=== PATIENT | male | born 1955 | race Caucasian/White ===

== ENCOUNTER 2021-02-24 18:04 | Inpatient (IN) | payer OTHER ==
[~2021-02-24] VITALS: Ht 175.3 cm; Wt 98.9 kg
--- NOTE | ~2021-02-24 | CON ---
[address] [address] CONSULTATION Name: ARACELIJOHNSON D Room: [address] M.R.#: [id number] Admission: 02/25/21 Attend Phys: Tricia Castellano Discharge: Date of : 53 Report #: [id number] THIS REPORT FOR: cc: KAT HOLLINGSWORTH MD, HEATHER L. MD Namin, Farid M. MD ~ cc: Bia Tejada MD DATE OF CONSULTATION: 02/26/2021 REASON FOR CONSULTATION: Chest pain and anemia. REQUESTING PHYSICIAN: Bia Tejada MD HISTORY OF PRESENT ILLNESS: This is a 65-year-old male with no previous history of endoscopic evaluation who presents with 6 weeks of weakness. The patient had COVID test on Sunday, which was positive. He also found to be anemic with hemoglobin of 8. He denies any hematochezia or melena. He has never had a colonoscopy or upper endoscopy. The patient also had some chest pain and elevated troponin. He was evaluated by Cardiology, and due to his cardiac murmur, he will get echocardiogram. He currently denies any hypoxia, nausea, vomiting, hematemesis, melena, hematochezia. He also denies any family history of colon cancer. PAST MEDICAL HISTORY: Significant for history of dyslipidemia, diabetes mellitus, history of tobaccoism, cardiac murmur, hypocalcemia and recently diagnosed anemia. ALLERGIES: No known drug allergy. MEDICATIONS: Please refer to MAR. SOCIAL HISTORY: The patient has a remote history of tobaccoism, but denies any tobacco use. FAMILY HISTORY: Negative for GI malignancy. LABORATORY DATA: Reveal sodium of 138, potassium 4.6, BUN is 16, creatinine 1.0, glucose is 432, calcium 7.8, bilirubin 0.3, AST 15, ALT 22, alk phos 66, albumin 2.8. WBC is 3.6 with hemoglobin of 8.1 and platelets of 140. Iron study was done, which revealed iron saturation of 4%, TIBC of 394 and serum iron of 16. The ferritin was only 34. Vitamin B12 and folic acid were within normal limits. IMAGING: Chest x-ray was obtained on admission, which showed 1 [place] [address] CONSULTATION Name: JOHNSON CHARLES Room: [address] IN [facility]#: [id number] Admission: 02/25/21 Attend Phys: Tricia Castellano Discharge: Date of : 53 Report #: [id number] lung nodule, otherwise normal lung parenchyma. ASSESSMENT AND PLAN: The patient with iron deficiency anemia, who has chest pain and recent diagnosis of COVID with mild elevation of troponin and cardiac murmur. He will get echocardiogram and evaluation by Cardiology. We will consider upper and lower endoscopy as outpatient as the patient never had endoscopic evaluation in the past. This will happen in 2 weeks from now. Meanwhile, his iron should be replaced with iron sulfate 325 b.i.d. By: [id number] Massey MD /nt
[2021-02-24 18:10] VITALS: BP 120/66
[2021-02-24 22:31] LABS: ABSOLUTE LYMPHOCYTES 1.6 thou/uL (0.8-5.3); ABSOLUTE NEUTROPHILS 2.4 thou/uL (1.6-8.1); HEMOGLOBIN 8.1 gm/dL (14.0-18.0); MCHC 31.7 g/dL (28.0-37.0)
[2021-02-24 22:33] LABS: ABSOLUTE BASOPHILS 0.1 thou/uL (0.0-0.2); ABSOLUTE EOSINOPHILS 0.2 thou/uL (0.0-0.7); BASOPHILS 1.1 %; EOSINOPHILS 4.7 %; HEMATOCRIT 25.4 % (42.0-52.0); MCH 24.6 pg (26.0-34.0); MCV 77.5 fL (80.0-100.0); MONOCYTES 18.2 %; MPV 8.9 fl. (7.2-11.1); NUCLEATED RBCS 0 /100WBC; PLATELET COUNT* 143 thou/uL (150-400); RBC 3.28 mil/uL (4.50-6.00); RDW-CV 15.7 % (10.5-14.5); WBC 5.2 thou/uL (4.0-11.0)
[2021-02-24 22:41] LABS: CALCIUM 8.3 mg/dL (8.5-10.1); CREATININE 1.1 mg/dL (0.6-1.3); POTASSIUM 3.9 mmol/L (3.5-5.1)
[2021-02-24 22:46] LABS: ALBUMIN 3.3 g/dL (3.4-5.0); TOTAL BILIRUBIN 0.4 mg/dL (<0.1-1.0); TOTAL PROTEIN 6.7 g/dL (6.4-8.2)
[2021-02-24 22:46] LABS: INFLUENZA A ANTIGEN Negative (Negative); INFLUENZA B ANTIGEN Negative (Negative)
[2021-02-25 03:10] VITALS: BP 126/58
[2021-02-25 07:15] VITALS: BP 131/60
--- NOTE | 2021-02-25 11:15 | EKG ---
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: : 1955 Requested By: Talib Lozano Order Number: [id number] MD: Jay Jay Mattson Measurements Intervals [place] Rate: 90 P: 93 [place]: 176 QRS: 83 QRSD: 96 T: -15 QT: 379 QTc: 464 Interpretive Statements Sinus rhythm Borderline right axis deviation Borderline repolarization abnormality No previous ECG available for comparison Electronically Signed On 02-25-2021 11:14:43 [employer] by Jay Jay Mattson [email or web address] <ELECTRONICALLY SIGNED> By: Jay Jay Mattson MD, FAC 02/25/21 1114 181 181 Jay Jay Mattson MD, [facility] /EPI
--- NOTE | 2021-02-25 11:19 | EKG ---
[place] [address] ELECTROCARDIOGRAM REPORT Name: JOHNSON CHARLES Room: [place] [address] ADM IN [facility]#: [id number] Admission: 02/25/21 Attend Phys: Bia Tejada Discharge: Date of : 53 Date of Service: 02/24/212120 Report #: [id number] THIS REPORT FOR: //name// [facility] ED Test Date: 2021-02-24 Test Time: 21:21:18 Pat Name: JOHNSON CHARLES Department: Room: 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 /EPI
[2021-02-25 11:30] VITALS: BP 129/62
[2021-02-25 14:10] VITALS: BP 129/62
[2021-02-25 14:32] LABS: ABSOLUTE EOSINOPHILS 0.2 thou/uL (0.0-0.7); ABSOLUTE LYMPHOCYTES 0.8 thou/uL (0.8-5.3); ABSOLUTE MONOCYTES 0.7 thou/uL (0.0-1.2); ABSOLUTE NEUTROPHILS 1.8 thou/uL (1.6-8.1); BASOPHILS 1.2 %; EOSINOPHILS 6.3 %; HEMATOCRIT 25.8 % (42.0-52.0); HEMOGLOBIN 8.1 gm/dL (14.0-18.0); LYMPHOCYTES 22.7 %; MCH 24.6 pg (26.0-34.0); MCHC 31.6 g/dL (28.0-37.0); MONOCYTES 19.2 %; MPV 8.8 fl. (7.2-11.1); NUCLEATED RBCS 0 /100WBC; PLATELET COUNT* 140 thou/uL (150-400); POLYS 50.6 %; RDW-CV 16.3 % (10.5-14.5); WBC 3.6 thou/uL (4.0-11.0)
[2021-02-25 14:46] LABS: ALBUMIN 2.8 g/dL (3.4-5.0); CALCIUM 7.8 mg/dL (8.5-10.1); POTASSIUM 4.6 mmol/L (3.5-5.1); TOTAL BILIRUBIN 0.3 mg/dL (<0.1-1.0)
[2021-02-25 15:56] LABS: CHOLESTEROL 145 mg/dL (<200); HDL CHOLESTEROL 33 mg/dL (>40); LDL CHOLESTEROL 88 mg/dL (<100); SERUM ASSESSMENT Clear; TC:HDL 4.4 Ratio (Not establshd); TRIGLYCERIDE 122 mg/dL (<150); VLDL 24 mg/dL (<40)
[2021-02-25 16:00] VITALS: BP 109/71
[2021-02-25 20:20] VITALS: BP 139/64
[2021-02-26] VITALS: BP 145/65
[2021-02-26 04:00] VITALS: BP 140/65
[2021-02-26 05:33] LABS: ABSOLUTE EOSINOPHILS 0.3 thou/uL (0.0-0.7); ABSOLUTE MONOCYTES 0.6 thou/uL (0.0-1.2); ABSOLUTE NEUTROPHILS 2.1 thou/uL (1.6-8.1); BASOPHILS 1.1 %; EOSINOPHILS 6.2 %; HEMATOCRIT 25.1 % (42.0-52.0); HEMOGLOBIN 7.9 gm/dL (14.0-18.0); MCH 24.4 pg (26.0-34.0); MCHC 31.5 g/dL (28.0-37.0); MCV 77.3 fL (80.0-100.0); MONOCYTES 15.1 %; MPV 9.3 fl. (7.2-11.1); NUCLEATED RBCS 0 /100WBC; PLATELET COUNT* 134 thou/uL (150-400); POLYS 52.6 %; RBC 3.25 mil/uL (4.50-6.00); RDW-CV 16.6 % (10.5-14.5); WBC 4.1 thou/uL (4.0-11.0)
[2021-02-26 05:54] LABS: CALCIUM 7.8 mg/dL (8.5-10.1); CREATININE 0.9 mg/dL (0.6-1.3); POTASSIUM 3.9 mmol/L (3.5-5.1)
[2021-02-26 08:50] VITALS: BP 142/78
[2021-02-26 12:00] VITALS: BP 114/56
[2021-02-26 16:00] VITALS: BP 116/62
[2021-02-26 20:00] VITALS: BP 139/60
[2021-02-27] VITALS (7 sets, daily range): BP systolic 92–156; BP diastolic 41–84
[2021-02-27 09:33] LABS: ABSOLUTE EOSINOPHILS 0.3 thou/uL (0.0-0.7); ABSOLUTE LYMPHOCYTES 1.1 thou/uL (0.8-5.3); ABSOLUTE MONOCYTES 0.5 thou/uL (0.0-1.2); ABSOLUTE NEUTROPHILS 2.3 thou/uL (1.6-8.1); HEMATOCRIT 27.9 % (42.0-52.0); HEMOGLOBIN 8.7 gm/dL (14.0-18.0); LYMPHOCYTES 25.2 %; MCH 24.1 pg (26.0-34.0); MCV 77.7 fL (80.0-100.0); MONOCYTES 12.3 %; MPV 9.3 fl. (7.2-11.1); NUCLEATED RBCS 0 /100WBC; PLATELET COUNT* 145 thou/uL (150-400); POLYS 55.5 %; RBC 3.59 mil/uL (4.50-6.00); RDW-CV 16.4 % (10.5-14.5); WBC 4.2 thou/uL (4.0-11.0)
[2021-02-27 09:43] LABS: ALBUMIN 2.9 g/dL (3.4-5.0); CALCIUM 7.9 mg/dL (8.5-10.1); CREATININE 0.9 mg/dL (0.6-1.3); POTASSIUM 4.3 mmol/L (3.5-5.1); TOTAL BILIRUBIN 0.4 mg/dL (<0.1-1.0); TOTAL PROTEIN 6.3 g/dL (6.4-8.2)
[2021-02-28] VITALS: BP 127/67
[2021-02-28 04:26] LABS: ABSOLUTE EOSINOPHILS 0.3 thou/uL (0.0-0.7); ABSOLUTE LYMPHOCYTES 1.2 thou/uL (0.8-5.3); ABSOLUTE MONOCYTES 0.6 thou/uL (0.0-1.2); ABSOLUTE NEUTROPHILS 1.8 thou/uL (1.6-8.1); EOSINOPHILS 7.2 %; HEMATOCRIT 25.9 % (42.0-52.0); HEMOGLOBIN 8.1 gm/dL (14.0-18.0); LYMPHOCYTES 31.7 %; MCH 24.3 pg (26.0-34.0); MCHC 31.4 g/dL (28.0-37.0); MCV 77.5 fL (80.0-100.0); MONOCYTES 14.5 %; MPV 9.1 fl. (7.2-11.1); NUCLEATED RBCS 0 /100WBC; PLATELET COUNT* 147 thou/uL (150-400); POLYS 45.6 %; RBC 3.34 mil/uL (4.50-6.00); RDW-CV 16.3 % (10.5-14.5); WBC 3.9 thou/uL (4.0-11.0)
[2021-02-28 04:45] VITALS: BP 116/67
[2021-02-28 05:00] LABS: ALBUMIN 2.6 g/dL (3.4-5.0); CALCIUM 7.7 mg/dL (8.5-10.1); CREATININE 1.1 mg/dL (0.6-1.3); TOTAL BILIRUBIN 0.2 mg/dL (<0.1-1.0)
[2021-02-28] MEDS ORDERED: BAYER CHEWABLE81 MG PO (06:30)
[2021-02-28] MEDS ORDERED: IRON325 PO (06:30)
[2021-02-28] MEDS ORDERED: LANTUS SUBQ (06:30)
[2021-02-28] MEDS ORDERED: HUMALOG100 UNIT/1 SUBQ (06:31)
[2021-02-28] MEDS ORDERED: GABAPENTIN100 MG PO (06:31)
[2021-02-28 12:00] VITALS: BP 113/68
[2021-02-28 14:13] VITALS: BP 113/68
[2021-02-28 14:55] VITALS: BP 113/68
== END 2021-02-28 14:45 | disposition home or self-care (01) | DRG 177 ==
LOC: M.ERS 18:04 → M.TBA-ER 02-25 00:30 → M.ORTHSURG 02-25 00:30
PROVIDERS: Internal Medicine; Physician Assistant; Registered Nurse; ADMIT Internal Medicine; ATTEND Internal Medicine
DX: U07.1 COVID-19 (principal); J12.82 Pneumonia due to coronavirus disease 2019; I21.4 Non-ST elevation (NSTEMI) myocardial infarction; R91.1 Solitary pulmonary nodule; E78.5 Hyperlipidemia, unspecified; E11.65 Type 2 diabetes mellitus with hyperglycemia; D50.9 Iron deficiency anemia, unspecified; R59.1 Generalized enlarged lymph nodes; I20.8 Other forms of angina pectoris; R01.1 Cardiac murmur, unspecified; E83.51 Hypocalcemia; G25.2 Other specified forms of tremor; Z79.82 Long term (current) use of aspirin; Z79.899 Other long term (current) drug therapy